=== PATIENT | female | born 1950 | race Caucasian/White ===

== ENCOUNTER 2017-10-30 16:28 | Emergency (ER) | payer MEDICARE, OTHER ==
[2017-10-30] MEDS ORDERED: diphenhydrAMINE 50 MG Cap PO ONE (17:00)
[2017-10-30] MEDS ORDERED: Ranitidine 50 MG/2 ML SDV IV ONE (17:00)
[2017-10-30] MEDS ORDERED: predniSONE 10 MG Tab ONE (17:00)
--- NOTE | 2017-10-30 17:17 | EDM.PDOC ---
ED HPI GENERAL MEDICAL PROBLEM - General Chief Complaint: Allergic Reaction Stated Complaint: ALLERGIC REACTION Time Seen by Provider: 10/30/17 16:30 Source of Information: Reports: Patient, RN History Limitations: Reports: No Limitations - History of Present Illness INITIAL COMMENTS - FREE TEXT/NARRATIVE: 67 yr female presents with acute allergic reaction. States feels like burning up and itching all over. States she took Levofloxacin today and a sip of beer and this reaction started. Onset: Sudden Onset Date: 10/30/17 Onset Time: 16:25 Duration: Getting Worse Location: Reports: Generalized Severity: Severe Improves with: Reports: Cold Therapy, Medication Associated Symptoms: Reports: Nausea/Vomiting, Rash. Denies: Chest Pain, Shortness of Breath - Related Data Home Meds: Home Meds Prednisone [IJD: Prednisone] 10 mg PO DAILY #15 tab 10/30/17 [Rx] diphenhydrAMINE HCl [Benadryl] 25 mg PO Q6HR #30 capsule 10/30/17 [Rx] ED ROS ALLERGIC REACTION - Review of Systems Review Of Systems: See Below Constitutional: Reports: No Symptoms HEENT: Reports: Ear Pain, Sinus Problem, Throat Swelling, Other (burning to mouth and ears) Respiratory: Reports: No Symptoms Cardiovascular: Reports: No Symptoms GI/Abdominal: Reports: Diarrhea, Nausea : Reports: No Symptoms Musculoskeletal: Reports: No Symptoms Skin: Reports: Pruritis Neurological: Reports: No Symptoms Psychiatric: Reports: Anxiety Hematologic/Lymphatic: Reports: No Symptoms Immunologic: Reports: No Symptoms ED EXAM GENERAL NO PERIP PULSE - Physical Exam Exam: See Below Exam Limited By: No Limitations General Appearance: Alert, Moderate Distress Ears: Other (erythema to ears) Nose: Normal Inspection, Normal Mucosa Throat/Mouth: Normal Voice, No Airway Compromise, Other (some swelling to tongue ) Head: Atraumatic, Normocephalic Neck: Normal Inspection, Supple, Non-Tender Respiratory/Chest: No Respiratory Distress, Lungs Clear, Normal Breath Sounds Cardiovascular: Regular Rate, Rhythm GI/Abdominal: Soft, Non-Tender Extremities: Normal Inspection, No Pedal Edema, Normal Capillary Refill Neurological: Alert, Oriented, Normal Cognition Psychiatric: Anxious Skin Exam: Warm, Dry, Intact, Normal Color Lymphatic: No Adenopathy Course - Vital Signs Last Recorded V/S: Last Vital Signs Temp 98.8 F 10/30/17 18:02 Pulse 128 H 10/30/17 18:02 Resp 28 H 10/30/17 18:02 BP 145/81 H 10/30/17 18:02 Pulse Ox 98 10/30/17 18:02 - Orders/Labs/Meds Meds: Medications Discontinued Medications Generic Name Dose Route Start Last Admin Trade Name Jhonnyq PRN Reason Stop Dose Admin Diphenhydramine HCl 50 mg 10/30/17 17:36 10/30/17 18:25 Benadryl IM 10/30/17 17:37 50 mg ONETIME ONE Administration Diphenhydramine HCl 50 mg 10/30/17 17:00 10/30/17 16:28 Benadryl PO 10/30/17 17:01 50 mg ONETIME ONE Administration Epinephrine HCl 0.5 mg 10/30/17 17:35 10/30/17 16:35 Adrenalin SUBCUT 10/30/17 17:36 0.5 mg ONETIME ONE Administration Epinephrine HCl 0.5 mg 10/30/17 17:40 10/30/17 18:24 Adrenalin SUBCUT 10/30/17 17:41 0.5 mg ONETIME ONE Administration Dexamethasone 10 mg/ Sodium 52.5 mls @ 100 mls/hr 10/30/17 17:34 10/30/17 18: 31 Chloride IV 10/30/17 18:03 100 mls/hr ONETIME ONE Administration Sodium Chloride 1,000 mls @ 200 mls/hr 10/30/17 17:45 10/30/17 16:30 Normal Saline IV 200 mls/hr ASDIRECTED ROMINA Administration Methylprednisolone Sodium Succinate 125 mg 10/30/17 17:40 10/30/17 16:30 Solu-Medrol IVPUSH 10/30/17 17:41 125 mg ONETIME ONE Administration Ranitidine HCl 50 mg 10/30/17 17:00 10/30/17 17:00 Zantac IV 10/30/17 17:01 50 mg ONETIME ONE Administration - Re-Assessments/Exams Free Text/Narrative Re-Assessment/Exam: 10/30/17 18:00 Pt responded to acute allergic reaction with use of Benadryl 50 mg PO and Benadryl 50 mg IM, Epinephrine 1 mg SQ given and Solu-medrol 125 mg IV given. After this REJI Villafana contacted [facility] and talked with an ER provider and recommend Pepcid 20 mg IV and Decadron 10 mg IV for allergic reaction and some swelling to lips and tongue. Pepcid unavailable, Zantac IV given per protocol. Decadron 10 mg in 50cc Nacl given. Pt alert and responding throughout. Feeling better now. Reviewed use of Prednisone tapering dose starting tomorrow, and Benadryl 25 mg PO every 6 hour for next 24-48 hour. No more burning to ears or mouth, no more pruritus. States some tenderness to abdomen. Pt plans to stay in [facility] and leave in am for [place]. 10/30/17 20:08 LE orders entered after acute episode of allergic reaction, times inaccurate on orders. Departure - Departure Time of Disposition: 18:50 Disposition: Home, Self-Care 01 Condition: Good Clinical Impression: Allergic reaction caused by a drug - Discharge Information Prescriptions: diphenhydrAMINE HCl [Benadryl] 25 mg PO Q6HR #30 capsule Prednisone [IJD: Prednisone] 10 mg PO DAILY #15 tab Instructions: Anaphylactic Reaction Referrals: PCP,None [Primary Care Provider] - Forms: ED Department Discharge Care Plan Goals: Return to Emergency room with any problems or concerns. Take prednisone as directed on bottle. Take benadryl 25mg every 6 hrs for the next 24 hrs. Follow with with primary Physician as needed. - Problem List & Annotations (1) Allergic reaction caused by a drug SNOMED Code(s): 239744988 Code(s): T78.40XA - ALLERGY, UNSPECIFIED, INITIAL ENCOUNTER Status: Acute - Problem List Review Problem List Initiated/Reviewed/Updated: Yes - Assessment/Plan Plan: Acute allergic reaction to Levofloxacin: Recommend no more of this medication. Prednisone taper dispensed from ER. and directions given to pt and REJI Villafana. Recommend getting Benadryl for local grocery or gas station. Benadryl 25 mg every 6 hour for next 24-48 hour. Rest and hydration, no alcoholic beverages tonight. continue IV fluids through 630pm and repeat vital signs. If symptoms resolved, discharge. Return to ER if symptoms worsen.
[2017-10-30] MEDS ORDERED: EPINEPHrine 1 MG/ML SDV SUBCUT ONE ×2 (17:35→17:40)
[2017-10-30] MEDS ORDERED: diphenhydrAMINE 50 MG/ML SDV IM ONE (17:36)
[2017-10-30] MEDS ORDERED: methylPREDNISolone Sodium Succinate 125 MG/2 ML SDV IVPUSH ONE (17:40)
[2017-10-30] MEDS ORDERED: Sodium Chloride 0.9% 1,000 ML IV SCH (17:45)
[2017-10-30] MEDS: Dexamethasone 10 MG in Sodium Chloride 0.9% 50 ML IV ONE ×2 (18:26→18:31)
== END 2017-10-30 18:50 | disposition home or self-care (01) ==
LOC: LB.ED 16:28
DX: L53.9 Erythematous condition, unspecified (principal); K14.8 Other diseases of tongue; L29.9 Pruritus, unspecified; T36.8X5A Adverse effect of other systemic antibiotics, initial encounter; Z79.899 Other long term (current) drug therapy
CPT/HCPCS: 96365; 96372; 96375; 99282; 99283; A9270; J0171; J1100; J1200; J2780; J2930; J7040; J7050; J7030